=== PATIENT | male | born 2000 | race Caucasian/White ===

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

== ENCOUNTER 2020-01-20 01:48 | Emergency (ER) | payer OTHER, MEDICAID ==
[~2020-01-20] VITALS: Ht 188 cm; Wt 106.6 kg
[2020-01-20 01:56] VITALS: BP_SYST 127
[2020-01-20 02:22] LABS: BILIRUBIN,URINE NEGATIVE (NEGATIVE); BLOOD, URINE NEGATIVE (NEGATIVE); CLARITY/URINE CLEAR (CLEAR); COLOR,URINE YELLOW (YELLOW); GLUCOSE,URINE NEGATIVE (NEGATIVE); KETONES,URINE NEGATIVE (NEGATIVE); LEUKOCYTE ESTERASE ,URINE NEGATIVE (NEGATIVE); NITRITE, URINE NEGATIVE (NEGATIVE); PH,URINE 6.5 (5.0-8.0); PROTEIN URINE 1+ (NEGATIVE); UROBILINOGEN,URINE 0.2 (0.2-1.0)
[2020-01-20 02:30] LABS: RBC,URINE 0-3 /HPF (0-3)
[2020-01-20] MEDS ORDERED: ONDANSETRON 4 MG ODT TAB PO ONE (02:30)
[2020-01-20] MEDS ORDERED: IBUPROFEN 800 MG TABLET PO ONE (02:30)
[2020-01-20 02:31] LABS: BACTERIA,URINE MODERATE /HPF (None Seen)
[2020-01-20 02:44] LABS: BASOPHILS # (AUTO) 0.1 K/uL (0.0-0.2); BASOPHILS % (AUTO) 0.6 % (0.0-2.0); EOSINOPHILS % (AUTO) 0.2 % (0.0-4.0); HEMATOCRIT 45.2 % (36-54); HEMOGLOBIN 15.6 g/dL (14.0-18.0); LYMPHOCYTES # (AUTO) 2.8 K/uL (1.0-5.5); LYMPHOCYTES % (AUTO) 27.8 % (20.5-51.5); MEAN CORPUSCULAR HEMOGLOBIN 34 pg (27-31); MEAN CORPUSCULAR HGB CONC 35 % (32-36); MEAN CORPUSCULAR VOLUME 99 fL (79.0-98.0); MONOCYTES # (AUTO) 0.7 K/uL (0.0-1.0); MONOCYTES % (AUTO) 7.3 % (1.7-9.3); NEUTROPHILS # (AUTO) 6.4 K/uL (1.8-7.7); NEUTROPHILS % (AUTO) 64.1 % (40.0-70.0); PLATELET COUNT (AUTO) 205 K/uL (130-430); RED BLOOD CELL COUNT(AUTO) 4.59 MIL/uL (4.2-6.2); RED CELL DISTRIBUTION WIDTH 12.9 % (9.0-15.0)
[2020-01-20 02:52] LABS: CALCIUM 9.3 mg/dL (8.4-11.0); CREATININE 1.33 mg/dL (0.55-1.30); POTASSIUM 3.9 mmol/L (3.5-5.1)
[2020-01-20 02:57] LABS: ALBUMIN 4.5 g/dL (3.4-4.8); TOTAL BILIRUBIN 1.5 mg/dL (0.0-1.0)
[2020-01-20] MEDS ORDERED: AZITHROMYCIN 250 MG TABLET PO ONE (03:30)
[2020-01-20] MEDS ORDERED: cefTRIAXone 250 MG VIAL IM ONE (03:30)
[2020-01-20] MEDS ORDERED: LIDOCAINE 1%, 20 ML MDV 20 ML ONE (03:49)
[2020-01-20 04:17] VITALS: BP_SYST 126
[2020-01-22 07:06] LABS: CHLAMYDIA TRACHOMATIS NAA Negative (Negative); NEISSERIA GONORRHOEAE NAA Negative (Negative)
== END 2020-01-20 04:17 | disposition home or self-care (01) ==
LOC: SED 01:48
DX: R10.32 Left lower quadrant pain (principal); R30.0 Dysuria
CPT/HCPCS: 36415; 80053; 81000; 83690; 85025; 87086; 87491; 87591; 96372; 99284; J0696; J2001; Q0144; Q0162